=== PATIENT | female | born 1995 | race Caucasian/White ===

== ENCOUNTER 2021-10-29 14:06 | Emergency (ER) | payer OTHER, SELFPAY ==
[2021-10-29 14:21] VITALS: BP 141/99; PULSE 117; RESP 16; TEMP 37; O2SAT 100
--- NOTE | 2021-10-29 15:40 | ED.URI ---
HPI - URI/Sore Throat General Chief Complaint: Upper Respiratory Infection Stated Complaint: sinus issues Source: patient and RN notes reviewed Limitations: no limitations History of Present Illness HPI Narrative: The unvaccinated patient, and obese non-smoker/nondrinker on multiple meds inc for diabetes, presents with a shorter 2-day history of nasal congestion with scratchy throat. No fever, earache; no loss of taste/smell, CP, vomiting/diarrhea, S OB. Symptoms are mild, worse with eating, and associated with visible uvular swelling. Related Data Home Medications Medication Instructions Recorded Confirmed alprazolam 10/29/21 fluconazole 10/29/21 hydroxyzine HCl 10/29/21 labetalol 10/29/21 metformin mg PO 10/29/21 Allergies Allergy/AdvReac Type Severity Reaction Status Date / Time No Known Allergies Allergy Verified 10/29/21 14:20 Review of Systems Review of Systems: General/Constitutional: No weight loss,fever Eyes: N0: Redness,discharge Ears/Nose/Throat: No: Epistaxis,ear discharge Respiratory: Denies: Hemoptysis Gastrointestinal: No Vomiting, Bleeding-rectal Skin: No Lumps, eruption Neurologic: No Focal Weakness,Sz Hematologic: Denies: Petechiae/Purpura Psychiatric: No: Suicida ideationl All Other Systems: Reviewed and Negative PMFSH Comments At time of signature, agree with nursing past medical, surgical, social and family history. There is no relevant family history pertinent to the presenting complaint Exam Narrative: General Appearance: Well appearing, overweight/well nourished EYE: PERRLA, Conjunctiva clear Ears: Auditory canal normal, TM normal Nose: Rhinorrhea, Mucousal erythema Mouth/Throat: MM moist, Uvula midline, Pharyngeal erythema with mild uvular hydrops/erythema Neck: Supple, No adenopathy Respiratory: No respiratory distress, Breath sounds equal, Clear to auscultation Cardiovascular: RRR, No JVD Musculoskeletal: Non tender, Normal strength Skin: Warm, Dry Neurological: A&O x3, CN II-XII intact Psychiatric: Normal mood, Normal affect Course Vital Signs Vital signs: Vital Signs Temperature 98.6 F 10/29/21 14:21 Pulse Rate 117 H 10/29/21 14:21 Respiratory Rate 16 10/29/21 14:21 Blood Pressure 141/99 H 10/29/21 14:21 Pulse Oximetry 100 10/29/21 14:21 Temperature 98.6 F 10/29/21 14:21 Pulse Rate 117 H 10/29/21 14:21 Respiratory Rate 16 10/29/21 14:21 Blood Pressure 141/99 H 10/29/21 14:21 Pulse Oximetry 100 10/29/21 14:21 MDM - URI/Sore Throat Lab Data Labs: Strep Screen Presumptive Negative *(Reference Range: Negative)* Discharge Plan Discharge Clinical Impression: Uvulitis Patient Disposition: Home, Self-Care Condition: Stable Instructions: Antibiotic Form, Uvulitis (ED) Additional Instructions: Decrease hydroxyzine, fluconazole by half/every other day when taking this antibiotic Z-John Prescriptions: New azithromycin 250 mg tablet See Rx Instructions .ROUTE .COMPLEX Qty: 6 RF: 0 benzonatate 100 mg capsule 100 mg PO TID PRN (Reason: cough) Qty: 20 RF: 2 lidocaine HCl [Lidocaine Viscous] 2 % solution 5 ml MUCOUS MEM QID PRN (Reason: pain) Qty: 100 RF: 0 azelastine 137 mcg (0.1 %) aerosol,spray 137 mcg NASAL Q12H Qty: 30 RF: 0 No Action fluconazole 150 mg tablet RF: 0 hydroxyzine HCl 50 mg tablet RF: 0 alprazolam 0.5 mg Tablet RF: 0 labetalol 100 mg tablet RF: 0 metformin 500 mg tablet extended release 24 hr PO RF: 0 Other Ambulatory Orders: SARS-CoV-2 RNA, Qual RT-PCR (Routine) Location: Determined by Patient Ordered By: Abdirahman Jacobson Follow-up/Referrals: UNKNOWN,DOCTOR [Primary Care Provider] -
== END 2021-10-29 15:55 | disposition home or self-care (01) ==
PROVIDERS: Emergency Provider Emergency Medicine
DX: K12.2 Cellulitis and abscess of mouth (principal); Z20.822 Contact with and (suspected) exposure to COVID-19; I10 Essential (primary) hypertension
CPT/HCPCS: 87081; 87880; 99213; G0463

== ENCOUNTER 2022-12-18 13:08 | Emergency (ER) | payer OTHER, SELFPAY ==
--- NOTE | 2022-12-18 13:23 | ED.URI ---
HPI - URI/Sore Throat General Stated Complaint: sorethroat Time Seen by Provider: 12/18/22 13:23 Source: patient Mode of arrival: ambulatory Limitations: no limitations History of Present Illness HPI Narrative: April is a 27-year-old female patient presenting to the clinic today with complaints of fever, sore throat, and nausea times 1 day. She reports she gets strep frequently. Reports that she was unable to get into her PCP so she came here to be seen MD elicited complaint: sore throat and nasal congestion Related Data Home Medications Medication Instructions Recorded Confirmed fluconazole 150 mg tablet 10/29/21 labetalol 100 mg tablet 10/29/21 metformin 500 mg tablet,extended mg PO 10/29/21 release 24 hr Allergies Allergy/AdvReac Type Severity Reaction Status Date / Time No Known Allergies Allergy Verified 12/18/22 14:02 Review of Systems Review of Systems: Pertinent positives per HPI. Patient denies any rash, headache, visual changes, dizziness, cough, shortness of breath, chest pain, palpitations, nausea, vomiting, diarrhea, constipation, abdominal pain, or any urinary issues. PMFSH Comments At the time of my signature, I reviewed and agree with the nursing past medical, surgical, social, and family history. There is no relevant family history pertinent to the patient complaint. Exam Narrative: General: Well-developed, well nourished, in no apparent distress Head: Normocephalic, atraumatic Eyes: Pupils equally round and reactive to light bilaterally, EOM intact, sclera and conjunctive clear, no discharge, lids normal Ears: TMs intact and congested, ear canals clear, no drainage, grossly hearing normal. Nose: Nares patent, no discharge, no inflammation, no sinus tenderness. Mouth: Oral pharynx without lesions or masses, good dentition, MMM. Oropharynx red with edematous tonsils without exudate Neck: Supple, trachea midline, enlargement of anterior cervical nodes, no thyroid masses or goiter palpable. Cardio: Regular rate and rhythm, s1 and s2 normal, no murmur appreciated. Resp: Clear to auscultation bilaterally, no rhonchi, rales, wheezing or rubs Course Course Emergency Course: Portions of this record may have been created with voice recognition software. Level of Care: Express Care Visit Vital Signs Vital signs: Vital Signs Temperature 38.1 C H 12/18/22 13:30 Pulse Rate 92 12/18/22 13:30 Respiratory Rate 18 12/18/22 13:30 Blood Pressure 129/83 12/18/22 13:30 Pulse Oximetry 98 12/18/22 13:30 Oxygen Delivery Room Air 12/18/22 13:30 Temperature 38.1 C H 12/18/22 13:30 Pulse Rate 92 12/18/22 13:30 Respiratory Rate 18 12/18/22 13:30 Blood Pressure 129/83 12/18/22 13:30 Pulse Oximetry 98 12/18/22 13:30 Oxygen Delivery Room Air 12/18/22 13:30 Vital signs reviewed MDM - URI/Sore Throat MDM Narrative Medical decision making narrative: At the time of visit patient is resting comfortably on the exam table. Strep screen was obtained was positive in the clinic today. He prescription for amoxicillin, Diflucan, and viscous lidocaine was sent to pharmacy. Supportive measures were discussed with the patient she voiced understanding of discharge instructions and agrees to treatment plan Differential Diagnosis Differential diagnosis: Likely upper respiratory infection, otitis media, sinusitis, viral infection, bronchitis, influenza, pharyngitis and other Lab Data Labs: Strep Screen Positive Group A Strep *(Reference Range: Negative)* Discharge Plan Discharge Clinical Impression: Strep pharyngitis Patient Disposition: Home, Self-Care Condition: Stable Instructions: Antibiotic Form, Strep Throat (ED) Additional Instructions: Strep screen was positive in the clinic today. Take prescription medications only as prescribed-amoxicillin, Diflucan, and viscous lidocaine Sanjaya
[2022-12-18 13:30] VITALS: BP 129/83; PULSE 92; RESP 18; TEMP 38.1; O2SAT 98
== END 2022-12-18 13:58 | disposition home or self-care (01) ==
PROVIDERS: Emergency Provider Nurse Practitioner Family
DX: J02.0 Streptococcal pharyngitis (principal); I10 Essential (primary) hypertension; E28.2 Polycystic ovarian syndrome
CPT/HCPCS: 87880; 99213; G0463

== ENCOUNTER 2023-02-06 09:13 | Emergency (ER) | payer OTHER, SELFPAY ==
[2023-02-06 09:29] VITALS: BP 144/84; PULSE 95; RESP 16; TEMP 36.9; O2SAT 100
--- NOTE | 2023-02-06 09:50 | ED.SKABFB ---
HPI - Skin/Abscess/Foreign Bdy General Chief complaint: Skin/Abscess/Foreign Body Stated complaint: rt leg insect bite Time Seen by Provider: 02/06/23 09:43 Source: patient Mode of arrival: ambulatory Limitations: no limitations History of Present Illness HPI narrative: Patient presents today complaining of pain and redness to her right inner thigh. Yesterday morning she noticed what she had a pustule to the right inner thigh with a possible ingrown hair. She pulled the hair out and popped the pustule. Since that time redness has been spreading across her thigh. She currently rates her pain 06/09. She has tried no [id number] treatment prior to arrival. Denies any history of staph infections or MRSA, abscesses or boils. Related Data Home Medications Medication Instructions Recorded Confirmed labetalol 100 mg tablet 100 mg PO DAILY 10/29/21 12/18/22 metformin 500 mg tablet,extended 500 mg PO DAILY 10/29/21 12/18/22 release 24 hr cholecalciferol (vitamin D3) 1,250 02/06/23 mcg (50,000 unit) capsule hydralazine 25 mg tablet mg 02/06/23 hydroxyzine HCl 50 mg tablet mg 02/06/23 Allergies Allergy/AdvReac Type Severity Reaction Status Date / Time No Known Allergies Allergy Verified 12/18/22 14:02 Review of Systems Review of Systems: CONSTITUTIONAL: Denies body aches, fever, chills, or sweats. EYES: Denies visual changes, redness, or discharge. ENT: Denies rhinorrhea, congestion, sore throat, or otalgia. CARDIOVASCULAR: Denies chest pain, palpitations, or edema. RESPIRATORY: Denies cough or dyspnea. GASTROINTESTINAL: Denies abdominal pain, nausea, vomiting, or diarrhea. GENITOURINARY: Denies dysuria or hematuria. SKIN: Denies rash, itching, or wounds.+ redness to right thigh MUSCULOSKELETAL: Denies back pain, joint pain, or myalgia. NEUROLOGIC: Denies headache, numbness, tingling, or weakness. PSYCH: Denies depression or anxiety. PMFSH Comments At time of signature, I have reviewed and agree with nursing past medical, surgical, social and family history unless otherwise noted. Please see nursing chart for further information. There is no relevant family history pertinent to the presenting complaint Exam Narrative: GENERAL: Well-appearing, well-nourished, and in no acute distress. HEAD: Normocephalic, atraumatic. EYES: EOMI. No redness or drainage. Conjunctivae normal. ENT: Mucous membranes pink and moist. NECK: Normal AROM. CHEST: No respiratory distress. EXTREMITIES: Normal range of motion. No edema. SKIN: Warm, dry, no rash. Capillary refill normal. Normal skin turgor. 12 x 13 cm area of erythema to the right inner thigh with approximately 5 x 5 cm area of erythema with tiny scabbed center. No fluctuance. No red streaking. No edema. Tender to palpation. Distal sensation intact. Capillary refill normal. Full range of motion of the leg. NEURO: No focal deficits. Alert and oriented x3. Gait steady. PSYCH: Normal affect. No signs of depression or anxiety. Course Course Level of Care: Express Care Visit Vital Signs Vital signs: Vital Signs Temperature 98.5 F 02/06/23 09:29 Pulse Rate 95 02/06/23 09:29 Respiratory Rate 16 02/06/23 09:29 Blood Pressure 144/84 H 02/06/23 09:29 Pulse Oximetry 100 02/06/23 09:29 Temperature 98.5 F 02/06/23 09:29 Pulse Rate 95 02/06/23 09:29 Respiratory Rate 16 02/06/23 09:29 Blood Pressure 144/84 H 02/06/23 09:29 Pulse Oximetry 100 02/06/23 09:29 Reviewed. Pt has been instructed to follow up with her PCP regarding her elevated blood pressure today. MDM - Skin/Abscess/Foreign Bdy MDM Narrative Medical decision making narrative: Symptoms consistent cellulitis. Prescription for Bactrim sent to pharmacy. Anticipatory guidance given. Differential Diagnosis Differential diagnosis: Likely abscess of skin or subcutaneous tissue, cellulitis, insect bites and contact dermatitis Critical Care Time Critical Care Time
== END 2023-02-06 09:58 | disposition home or self-care (01) ==
PROVIDERS: Emergency Provider Nurse Practitioner
DX: L03.115 Cellulitis of right lower limb (principal)
CPT/HCPCS: 99213; G0463